=== PATIENT | female | born 1970 | race Caucasian/White ===

== ENCOUNTER → 2019-04-17 | Outpatient (CLI) | payer BC ==
[~2019-04-17] MED LIST: OXYACE5T PO
[2019-04-18 15:09] LABS: HPV 16 Negative (Negative); HPV 18 Negative (Negative); HPV OTHER HR TYPES Negative (Negative)
== END | disposition home or self-care (01) ==
LOC: LAB SHORT 10:56 → LAB 10:56
PROVIDERS: Advanced Practice Midwife
DX: Z01.419 Encounter for gynecological examination (general) (routine) without abnormal findings (principal)
CPT/HCPCS: 87624; G0123

== ENCOUNTER → 2020-09-21 | Outpatient (CLI) | payer BC ==
[~2020-09-21] MED LIST changes: +ALBU90OI INH; +ALLEGRA ALLERG180 MG PO; +BUDESONIDE-FO10.2 G3 INH; +FLUT.05NI; +LANS30EC PO; +LISI20 PO; +SYMBICORT 80-46.9 GM INH; +[UNRECOGNIZED DRUG - OTHER]
== END ==
LOC: LAB SHORT 13:22 → LAB 13:22
DX: D25.9 Leiomyoma of uterus, unspecified (principal)
CPT/HCPCS: 88305

== ENCOUNTER 2020-11-10 05:56 | Day surgery (SDC) | payer BC ==
[~2020-11-10] VITALS: Ht 160 cm; Wt 84.6 kg
[~2020-11-10 05:56] MED LIST changes: +Crestor20 MG PO; +OMEP20ER PO
--- NOTE | 2020-11-10 06:43 | NUR ---
History, Chart, Medications and Allergies reviewed before start of procedure. Patient confirms NPO status and agrees with scheduled surgery. Lungs clear T/O to Auscultation. Patient States Post-Procedure ride home has been arranged.
--- NOTE | 2020-11-10 07:10 | NUR ---
SPOKE TO DR BAEZ ON THE PHONE TO CLARIFY ANTIBIOTIC ORDER DUE TO ALLERGY CONFLICT TO ANCEF. NEW ORDERS RECEIVED. ANCEF NOT TO BE GIVEN.
[2020-11-10] MEDS ORDERED: HYDROCODONE-AC1 EA14 PO (12:04)
--- NOTE | 2020-11-10 12:20 | NUR ---
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 PT TO UNIT AT ABOUT 1030. PT A/O, VSS. SURGICAL SITES WNL, SCANT VAGINAL BLEED NOTED. KLEIN DC'D AND PT ABLE TO AMBULATE TO BATHROOM, VOIDED 50ML. PVR WAS 20ML. PT MEDICATED FOR PAIN. WILL CTM.
[2020-11-10] MEDS ORDERED: DOCU100 PO (15:44)
[2020-11-10] MEDS ORDERED: ONDA4ODT MM (15:45)
--- NOTE | 2020-11-10 16:00 | NUR ---
DISCHARGE: PT IS VOIDING, AMBULATING, ALEXADNRA PO AND PAIN MANAGED. DCPACKET PRINTED AND PT EDUCATED. MEDS FAXED TO [facility] ON [address]. PT LEFT UNIT AT ABOUT 1600 VIA WHEELCHAIR WITH OLAMIDE REESE
== END 2020-11-10 16:05 | disposition home or self-care (01) ==
LOC: ORSCMMR 05:56 → ORD 07:30 → SURS 10:37 → ORSCMMR 16:05
PROVIDERS: Obstetrics & Gynecology
PROC: 0UT0FZZ Resection of Right Ovary, Via Natural or Artificial Opening With Percutaneous Endoscopic Assistance (ICD-10-PCS; principal; 2020-11-10 07:30)
PROC: 0UT7FZZ Resection of Bilateral Fallopian Tubes, Via Natural or Artificial Opening With Percutaneous Endoscopic Assistance (ICD-10-PCS; principal; 2020-11-10 07:30)
PROC: 0UT9FZZ Resection of Uterus, Via Natural or Artificial Opening With Percutaneous Endoscopic Assistance (ICD-10-PCS; principal; 2020-11-10 07:30)
DX: N92.0 Excessive and frequent menstruation with regular cycle (principal); R10.2 Pelvic and perineal pain; D25.9 Leiomyoma of uterus, unspecified; N84.0 Polyp of corpus uteri; N83.11 Corpus luteum cyst of right ovary; I10 Essential (primary) hypertension; J45.909 Unspecified asthma, uncomplicated; K21.9 Gastro-esophageal reflux disease without esophagitis; Z79.899 Other long term (current) drug therapy
CPT/HCPCS: 88307; 93005; 93010; A9270; J0171; J1100; J1580; J1885; J2250; J2405; J2704; J2710; J3010; J7120

== ENCOUNTER → 2020-12-21 | Outpatient (CLI) | payer BC ==
[~2020-12-21] MED LIST changes: +DOCU100 PO; +HYDROCODONE-AC1 EA14 PO; +ONDA4ODT MM
[2020-12-21 16:54] LABS: Source, Urine Clean Catch
[2020-12-21 19:00] LABS: Appearance, Urine Clear (Clear); Bilirubin, Urine Neg (Neg); Blood, Urine 5+ (Neg); Color, Urine Yellow (P-Yellow); Glucose Qualitative, Urine Neg (Neg); Ketones, Urine Neg (Neg); Leukocyte Esterase, Urine 2+ (Neg); Nitrite, Urine Neg (Neg); Protein, Urine 3+ (Neg); Urobilinogen, Urine NORM (Normal)
[2020-12-21 19:25] LABS: Bacteria Mod /hpf; Squamous Epithelial Cells Few /hpf (Few)
== END | disposition home or self-care (01) ==
LOC: LAB SHORT 16:49
PROVIDERS: Obstetrics & Gynecology
DX: R30.9 Painful micturition, unspecified (principal)
CPT/HCPCS: 81001; 87086

== ENCOUNTER → 2022-03-08 | Outpatient (CLI) | payer BC | END | disposition home or self-care (01) | LOC: LAB 09:10 → LAB SHORT 09:10 | DX: R30.0 Dysuria (principal) | CPT/HCPCS: 87086 ==

== ENCOUNTER → 2022-05-07 | Outpatient (CLI) | payer BC ==
[2022-05-08 12:20] LABS: Adenovirus F 40/41 Not Detected (NOT DETECT); Astrovirus Not Detected (NOT DETECT); Campylobacter Sp Not Detected (NOT DETECT); Cryptosporidium Not Detected (NOT DETECT); Cyclospora Cayetanensis Not Detected (NOT DETECT); E. Coli O157 Not Detected (NOT DETECT); Entamoeba Histolytica Not Detected (NOT DETECT); Enteroaggregative E. coli-EAEC Not Detected (NOT DETECT); Enteropathogenic E. coli-EPEC Not Detected (NOT DETECT); Enterotoxigenic E. coli-ETEC Not Detected (NOT DETECT); Giardia Lamblia Not Detected (NOT DETECT); Norovirus GI/GII Not Detected (NOT DETECT); Plesiomonas Shigelloides Not Detected (NOT DETECT); Rotavirus A Not Detected (NOT DETECT); Salmonella Sp Not Detected (NOT DETECT); Sapovirus Not Detected (NOT DETECT); Shiga Toxin-prod E. coli-STEC Not Detected (NOT DETECT); Shigella/Enteroin E. coli-EIEC Not Detected (NOT DETECT); Vibrio Cholerae Not Detected (NOT DETECT); Vibrio Sp Not Detected (NOT DETECT); Yersinia Enterocolitica Not Detected (NOT DETECT)
== END | disposition home or self-care (01) ==
LOC: LAB 22:45 → LAB SHORT 22:45
PROVIDERS: Internal Medicine
DX: K52.9 Noninfective gastroenteritis and colitis, unspecified (principal)
CPT/HCPCS: 87507

== ENCOUNTER → 2024-02-08 | Outpatient (CLI) | payer BC | LOC: LAB SHORT 07:50 → LAB 07:50 | DX: R10.9 Unspecified abdominal pain (principal) | CPT/HCPCS: 87086 ==

== ENCOUNTER → 2024-03-06 | Outpatient (CLI) | payer BC | END | disposition home or self-care (01) | LOC: LAB 05:30 → LAB SHORT 05:30 | DX: R30.0 Dysuria (principal); R35.0 Frequency of micturition; R31.9 Hematuria, unspecified | CPT/HCPCS: 87077; 87086; 87186 ==